=== PATIENT | male | born 1990 | race Caucasian/White ===

== ENCOUNTER 2017-06-24 18:20 | Emergency (ER) | payer SELFPAY ==
[2017-06-24] MEDS ORDERED: LIDOCAINE 1%/EPINEPHRINE INJ 20 ML VIAL INJ ONE (19:14)
[2017-06-24] MEDS ORDERED: DIPH/PERTUSS(ACELL)/TETANUS VAC/PF 0.5 ML SYR (>=10YO) IM ONE (19:14)
--- NOTE | 2017-06-24 19:16 | ER Document Report ---
ED Medical Screen (RME) - General Mode of Arrival: Ambulatory Information source: Patient TRAVEL OUTSIDE OF THE [place] IN LAST 30 DAYS: No - General Chief Complaint: Lip Injury Stated Complaint: LACERATION TO LIP Notes: 26 y.o male presents to the ED with a laceration to his lip. He reports her was drinking from broken glass while walking. Last tetanus unknown. Denies any other medical problems or allergies. (JOSE LUIS BOLTON) - Related Data Allergies/Adverse Reactions: No Known Allergies Allergy (Verified 06/24/17 18:56) Past Medical History - General Information source: Patient - Social History Cigarette use (# per day): No Chew tobacco use (# tins/day): No Frequency of alcohol use: None Drug Abuse: None Renal/ Medical History: Denies: Hx Peritoneal Dialysis Review of Systems - Review of Systems Constitutional: No symptoms reported EENT: No symptoms reported Cardiovascular: No symptoms reported Respiratory: No symptoms reported Gastrointestinal: No symptoms reported Genitourinary: No symptoms reported Male Genitourinary: No symptoms reported Musculoskeletal: No symptoms reported Skin: Other - laceration to lip Hematologic/Lymphatic: No symptoms reported Neurological/Psychological: No symptoms reported -: Yes All other systems reviewed and negative Physical Exam - Vital signs Vitals: Temp Pulse Resp BP Pulse Ox 97.9 F 59 L 16 131/74 H 96 06/24/17 18:36 06/24/17 18:36 06/24/17 18:36 06/24/17 18:36 06/24/17 18:36 - Notes Notes: Physical Exam: General: Alert, appears well. HEENT: Normocephalic. Atraumatic. PERRLA. Extraocular movements intact. Oropharynx clear. Neck: Supple. Respiratory: No respiratory distress. Abdominal: Normal Inspection. No distension. Extremities: Moves all four extremities. Neurological: Normal cognition. AAOx4. Normal speech. Psychological: Normal affect. Normal Mood. Skin: 4mm laceration to the angle of mouth LT side. Gapes when pt opens his mouth. (JOSE LUIS BOLTON) - Vital Signs Vital signs: Temp Pulse Resp BP Pulse Ox 99.1 F 62 16 120/62 99 06/24/17 20:36 06/24/17 20:36 06/24/17 20:36 06/24/17 20:36 06/24/17 20:36 Doctor's Discharge - Discharge Clinical Impression: Lip laceration Condition: Stable Disposition: HOME, SELF-CARE Instructions: Family Physicians / Practices Additional Instructions: Oral Laceration, Sutured The laceration in your mouth has been sutured because of its severity. Suturing does increase the risk of infection somewhat, as germs in the wound are trapped inside. The wound will appear white and rough tomorrow. This ugly appearance is normal for an oral laceration, and will persist until healing is complete. Do not "play" with the stitches with your tongue or teeth. Prevent swelling by resting for 24 hours. Avoid tart or spicy foods for a couple of days. If any signs of infection occur (swelling, redness of the skin directly over the laceration area, increasing tenderness, tender lumps below the jaw or on the sides of the neck, or fever), see the doctor immediately. ANTIBIOTIC OINTMENT PROTECTION: Your wounds are such that dressing them is not practical or optional. After cleansing, you should apply a thin coating of antibiotic ointment ( Bacitracin, not Neosporin) to the wounds at least three times daily. This lessens infection risk, and may decrease the amount of scarring. Use a q-tip or dull butter knife, not your finger, to apply this ointment. Any debris or ooze which builds up in the ointment should be gently rubbed off with a sterile gauze pad. Harder crusting may need to be gently scrubbed off with a clean wash cloth with soap and warm water, perhaps applying a warm, wet wash cloth to the wound for ten minutes first. Development of redness, severe itching, or blistering may mean allergy to the ointment. See the doctor. TETANUS IMMUNIZATION GIVEN: You have been given an immunization against tetanus. Please record this in your records. In general, a booster is needed only once every 10 years. The tetanus shot protects against tetanus or "lockjaw," which is a complication of certain wound infections (the tetanus shot cannot protect against the actual infection). The immunization site may become warm and red due to local reaction. If this occurs, apply warm compresses and take aspirin or ibuprofen to reduce inflammation and discomfort. Return for evaluation if the reaction becomes severe. FOLLOW-UP CARE: Please return in ___3__ days for an infection check and dressing change. Your sutures should be removed in ____5_ days. To facilitate a timely removal of your sutures, you may return to the Emergency Department at [facility]. You do not need to call for an appointment, but the best time to come in for suture removal is early in the morning. If you have been referred to another physician for follow-up care, call that physicians office for an appointment as you were instructed. If you experience a significant change in your laceration, or if you are concerned there may be an infection (swelling, redness, drainage, increasing tenderness, red streaks, tender lumps in the armpit or groin above the laceration, or fever) , return to the Emergency Department immediately re-evaluation. Forms: Elevated Blood Pressure Scribe Documentation - Scribe Written by Edin:: Edin Fuentes [id number]/24/[id number] acting as scribe for :: Rowan
--- NOTE | 2017-06-24 19:40 | ER Document Report ---
ED Oral Problem - General Chief Complaint: Lip Injury Stated Complaint: LACERATION TO LIP Time Seen by Provider: 06/24/17 19:10 Mode of Arrival: Ambulatory Notes: 26-year-old male presents to ED for laceration to the lateral left lower lip when he was walking with a glass and drinking when the glass broke. He is does not know when his last tetanus was. He denies any medical or surgical history. He denies any allergies. TRAVEL OUTSIDE OF THE [place] IN LAST 30 DAYS: No - HPI Patient complains to provider of: Other - Laceration left lower lip Onset: Just prior to arrival Onset: Sudden Quality of pain: Sharp Severity: Mild Pain Level: 1 Associated symptoms: Other - Laceration to the left lower lip Similar symptoms previously: No Recently seen / treated by doctor/dentist: No - Related Data Allergies/Adverse Reactions: No Known Allergies Allergy (Verified 06/24/17 18:56) Past Medical History - General Information source: Patient - Social History Smoking Status: Never Smoker Cigarette use (# per day): No Chew tobacco use (# tins/day): No Smoking Education Provided: No Frequency of alcohol use: None Drug Abuse: None Family History: Reviewed & Not Pertinent Patient has suicidal ideation: No Patient has homicidal ideation: No - Past Medical History Cardiac Medical History: Reports: None Pulmonary Medical History: Reports: None EENT Medical History: Reports: None Neurological Medical History: Reports: None Endocrine Medical History: Reports: None Renal/ Medical History: Reports: None Malignancy Medical History: Reports None GI Medical History: Reports: None Musculoskeltal Medical History: Reports None Skin Medical History: Reports None Psychiatric Medical History: Reports: None Traumatic Medical History: Reports: None Infectious Medical History: Reports: None Surgical Hx: Negative Past Surgical History: Reports: None - Immunizations Hx Diphtheria, Pertussis, Tetanus Vaccination: Yes - 06/24/2017 Review of Systems - Review of Systems Constitutional: No symptoms reported EENT: Other - Laceration to the left lower lip Cardiovascular: No symptoms reported Respiratory: No symptoms reported Gastrointestinal: No symptoms reported Genitourinary: No symptoms reported Male Genitourinary: No symptoms reported Musculoskeletal: No symptoms reported Skin: Other Hematologic/Lymphatic: No symptoms reported Neurological/Psychological: No symptoms reported Physical Exam - Vital signs Vitals: Temp Pulse Resp BP Pulse Ox 97.9 F 59 L 16 131/74 H 96 06/24/17 18:36 06/24/17 18:36 06/24/17 18:36 06/24/17 18:36 06/24/17 18:36 Interpretation: Normal - General General appearance: Appears well, Alert - HEENT Head: Open wounds - Laceration to the left lower lip Eyes: Normal Pupils: PERRL Mouth/Lips: Laceration - Left lower lip - Respiratory Respiratory status: No respiratory distress Chest status: Nontender Breath sounds: Normal Chest palpation: Normal - Cardiovascular Rhythm: Regular Heart sounds: Normal auscultation Murmur: No - Abdominal Inspection: Normal Distension: No distension Bowel sounds: Normal Tenderness: Nontender Organomegaly: No organomegaly - Back Back: Normal, Nontender - Extremities General upper extremity: Normal inspection, Nontender, Normal color, Normal ROM , Normal temperature General lower extremity: Normal inspection, Nontender, Normal color, Normal ROM , Normal temperature, Normal weight bearing. No: Corry's sign - Neurological Neuro grossly intact: Yes Cognition: Normal Orientation: AAOx4 [place] Coma Scale Eye Opening: Spontaneous Luz Maria Coma Scale Verbal: Oriented [place] Coma Scale Motor: Obeys Commands [place] Coma Scale Total: 15 Speech: Normal Motor strength normal: LUE, RUE, LLE, RLE Sensory: Normal - Psychological Associated symptoms: Normal affect, Normal mood - Skin Skin Temperature: Warm Skin Moisture: Dry Skin Color: Normal Skin irregularity: Laceration - Left lower lip Course - Re-evaluation Re-evalutation: 06/24/17 20:22 Patient was treated with a tetanus shot then his left lower lateral lip was cleaned well with surgical scrub ensuring that I did not get any in the mouth. It was then anesthetized with lidocaine with epi and 2 sutures placed in the left lower lateral lip. Patient tolerated well patient instructed to return in 5 days to have the sutures removed. Patient instructed to refrain from eating or drinking anything that was acidic or spicy as these would be painful to the lip until healed. - Vital Signs Vital signs: Temp Pulse Resp BP Pulse Ox 97.9 F 59 L 16 131/74 H 96 06/24/17 18:36 06/24/17 18:36 06/24/17 18:36 06/24/17 18:36 06/24/17 18:36 Procedures - Laceration/Wound Repair Left lower lip Time completed: 20:15 Wound length (cm): 1 Wound's Depth, Shape: Superficial, Linear Laceration pre-procedure: Sterile PPE donned, Sterile drapes applied, Shur- Clens applied Anesthetic type: 1% Lidocaine w/epi Volume Anesthetic (mLs): 2 Wound explored: Contaminated Irrigated w/ Saline (mLs): 50 Wound Repaired With: Sutures Suture Size/Type: 5:0, Ethilon Number of Sutures: 2 Post-procedure wound care: Other Discharge - Discharge Clinical Impression: Lip laceration Qualifiers: Encounter type: initial encounter Qualified Code(s): S01.511A - Laceration without foreign body of lip, initial encounter Condition: Stable Disposition: HOME, SELF-CARE Instructions: Family Physicians / Practices Additional Instructions: Oral Laceration, Sutured The laceration in your mouth has been sutured because of its severity. Suturing does increase the risk of infection somewhat, as germs in the wound are trapped inside. The wound will appear white and rough tomorrow. This ugly appearance is normal for an oral laceration, and will persist until healing is complete. Do not "play" with the stitches with your tongue or teeth. Prevent swelling by resting for 24 hours. Avoid tart or spicy foods for a couple of days. If any signs of infection occur (swelling, redness of the skin directly over the laceration area, increasing tenderness, tender lumps below the jaw or on the sides of the neck, or fever), see the doctor immediately. ANTIBIOTIC OINTMENT PROTECTION: Your wounds are such that dressing them is not practical or optional. After cleansing, you should apply a thin coating of antibiotic ointment ( Bacitracin, not Neosporin) to the wounds at least three times daily. This lessens infection risk, and may decrease the amount of scarring. Use a q-tip or dull butter knife, not your finger, to apply this ointment. Any debris or ooze which builds up in the ointment should be gently rubbed off with a sterile gauze pad. Harder crusting may need to be gently scrubbed off with a clean wash cloth with soap and warm water, perhaps applying a warm, wet wash cloth to the wound for ten minutes first. Development of redness, severe itching, or blistering may mean allergy to the ointment. See the doctor. TETANUS IMMUNIZATION GIVEN: You have been given an immunization against tetanus. Please record this in your records. In general, a booster is needed only once every 10 years. The tetanus shot protects against tetanus or "lockjaw," which is a complication of certain wound infections (the tetanus shot cannot protect against the actual infection). The immunization site may become warm and red due to local reaction. If this occurs, apply warm compresses and take aspirin or ibuprofen to reduce inflammation and discomfort. Return for evaluation if the reaction becomes severe. FOLLOW-UP CARE: Please return in ___3__ days for an infection check and dressing change. Your sutures should be removed in ____5_ days. To facilitate a timely removal of your sutures, you may return to the Emergency Department at [facility]. You do not need to call for an appointment, but the best time to come in for suture removal is early in the morning. If you have been referred to another physician for follow-up care, call that physicians office for an appointment as you were instructed. If you experience a significant change in your laceration, or if you are concerned there may be an infection (swelling, redness, drainage, increasing tenderness, red streaks, tender lumps in the armpit or groin above the laceration, or fever) , return to the Emergency Department immediately re-evaluation. Forms: Elevated Blood Pressure
[2017-06-24 20:37] VITALS: BP 120/62
== END 2017-06-24 20:37 | disposition home or self-care (01) ==
LOC: ER 18:20
PROC: 0CQ1XZZ Repair Lower Lip, External Approach (ICD-10-PCS; principal; 2017-06-24)
DX: S01.511A Laceration without foreign body of lip, initial encounter (principal); W25.XXXA Contact with sharp glass, initial encounter
CPT/HCPCS: 99283; 90471; 90715; 12011; J3490

== ENCOUNTER 2017-06-26 19:21 | Emergency (ER) | payer SELFPAY ==
[2017-06-26 19:59] VITALS: BP 130/63
== END 2017-06-26 20:28 | disposition left against medical advice (07) ==
LOC: ER 19:21
DX: Z53.21 Procedure and treatment not carried out due to patient leaving prior to being seen by health care provider (principal)

== ENCOUNTER 2017-06-29 01:17 | Emergency (ER) | payer SELFPAY ==
--- NOTE | 2017-06-29 01:40 | ER Document Report ---
HPI - HPI Patient complains to provider of: Suture removal Onset: Other - Monday afternoon Pain Level: Denies Context: 26-year-old male here for 2 suture removals left lateral mouth replaced Monday afternoon. He was told to come back today for removal. Associated Symptoms: None Exacerbated by: Denies Relieved by: Denies Similar symptoms previously: No Recently seen / treated by doctor: Yes - ROS ROS below otherwise negative: Yes Systems Reviewed and Negative: Yes All other systems reviewed and negative - CONSTITUTIONAL Constitutional: DENIES: Fever, Chills - EENT EENT: DENIES: Sore Throat, Ear Pain, Eye problems - NEURO Neurology: DENIES: Headache, Weakness, Vision blurred, Dizzinesss / Vertigo - CARDIOVASCULAR Cardiovascular: DENIES: Chest pain - RESPIRATORY Respiratory: DENIES: Trouble Breathing, Coughing - GASTROINTESTINAL Gastrointestinal: DENIES: Abdominal Pain, Black / Bloody Stools - URINARY Urinary: DENIES: Dysuria, Urgency, Frequency - REPRODUCTIVE Reproductive: DENIES: :, Postmenopausal, Abnormal bleeding / discharge - MUSCULOSKELETAL Musculoskeletal: DENIES: Extremity pain Past Medical History - General Information source: Patient - Social History Smoking Status: Former Smoker Chew tobacco use (# tins/day): No Frequency of alcohol use: None Drug Abuse: None Lives with: Family Family History: Reviewed & Not Pertinent Patient has suicidal ideation: No Patient has homicidal ideation: No - Medical History Medical History: Negative Renal/ Medical History: Denies: Hx Peritoneal Dialysis Surgical Hx: Negative - Immunizations Hx Diphtheria, Pertussis, Tetanus Vaccination: Yes - 06/24/2017 Vertical Provider Document - CONSTITUTIONAL Agree With Documented VS: Yes Exam Limitations: No Limitations - INFECTION CONTROL TRAVEL OUTSIDE OF THE [place] IN LAST 30 DAYS: No - NECK Neck: Supple - NEURO Level of Consciousness: Awake - DERM Integumentary: Laceration - Crusted left corner of lips #2 sutures, no infection Adult Front & Back Diagram: 1 - #2 sutures left corner of mouth Course - Vital Signs Vital signs: Temp Pulse Resp BP Pulse Ox 97.9 F 84 16 133/66 H 99 06/29/17 01:23 06/29/17 01:23 06/29/17 01:23 06/29/17 01:23 06/29/17 01:23 Discharge - Discharge Clinical Impression: Suture removal Condition: Good Disposition: HOME, SELF-CARE Instructions: Suture Removal Additional Instructions: Return to the emergency room any concerns
[2017-06-29 02:07] VITALS: BP 129/60
== END 2017-06-29 02:02 | disposition home or self-care (01) ==
LOC: ER 01:17
DX: S01.512D Laceration without foreign body of oral cavity, subsequent encounter (principal); X58.XXXD Exposure to other specified factors, subsequent encounter; Z87.891 Personal history of nicotine dependence

== ENCOUNTER 2017-10-08 22:07 | Emergency (ER) | payer SELFPAY ==
[2017-10-08 22:50] VITALS: BP 128/68
--- NOTE | 2017-10-08 23:01 | RADIOLOGY REPORT (SQ) ---
EXAM DESCRIPTION: XR HAND 3 OR MORE VIEWS COMPLETED DATE/TME: 10/08/2017 22:16 CLINICAL HISTORY: 26 years Male, lac COMPARISON: None. Findings: Swelling, no foreign body. Bones, joints, and soft tissues of the RIGHT XR HAND 3 OR MORE VIEWS appear otherwise intact. IMPRESSION: Swelling.
[2017-10-08] MEDS ORDERED: DIPH/PERTUSS(ACELL)/TETANUS VAC/PF 0.5 ML SYR (>=10YO) IM ONE (23:38)
[2017-10-08] MEDS ORDERED: LIDOCAINE 1% INJ-PF (10 MG/ML) 30 ML SDV INJ ONE (23:38)
--- NOTE | 2017-10-09 00:21 | ER Document Report ---
ED General - General Chief Complaint: Laceration Stated Complaint: LACERATION ON RIGHT HAND Time Seen by Provider: 10/08/17 23:34 Notes: Patient is a 26-year-old male presents with complaints of accidentally cutting his right hand with shoes. Patient is left-hand dominant. The Base of the third Digit on the Right Hand. No Other Injuries. Patient Is Unsure When His Last Tetanus Shot Was. Patient Denies Any Numbness into the Finger. TRAVEL OUTSIDE OF THE [place] IN LAST 30 DAYS: No - Related Data Allergies/Adverse Reactions: No Known Allergies Allergy (Verified 06/24/17 18:56) Past Medical History - Social History Smoking Status: Unknown if Ever Smoked Frequency of alcohol use: None Drug Abuse: None Family History: Reviewed & Not Pertinent Patient has suicidal ideation: No Patient has homicidal ideation: No Renal/ Medical History: Denies: Hx Peritoneal Dialysis - Immunizations Hx Diphtheria, Pertussis, Tetanus Vaccination: Yes - 06/24/2017 Review of Systems - Review of Systems Notes: My Normal Review Basic REVIEW OF SYSTEMS: CONSTITUTIONAL : Denies fever, chills, or sweats. Denies recent illness. MUSCULOSKELETAL: jagged 3cm Laceration to the base of the right third digit. SKIN: Denies rash or skin lesions. NEUROLOGICAL: Denies sensory or motor loss. ALL OTHER SYSTEMS REVIEWED AND NEGATIVE. Physical Exam - Vital signs Vitals: Temp Pulse Resp BP Pulse Ox 98.6 F 86 20 128/68 H 97 10/08/17 22:49 10/08/17 22:49 10/08/17 22:49 10/08/17 22:49 10/08/17 22:49 - Notes Notes: General Appearance: Well nourished, alert, cooperative, no acute distress, no obvious discomfort. Vitals: reviewed, See vital signs table. Head: no swelling or tenderness to the head Eyes: PERRL, EOMI, Conjuctiva clear Extremities: strength 5/5 in all extremities, good pulses in all extremities, patient has a laceration to the base of the right second digit. Small amount of venous oozing. Patient is able flex and extend the finger. Distal sensation is intact. Skin: warm, dry, appropriate color, no rash Neuro: speech clear, oriented x 3, normal affect, responds appropriately to questions. Course - Re-evaluation Re-evalutation: 10/09/17 00:56 Plan evaluation of the cuts. I do not see evidence of tendinous injury. Patient is able flex the finger. The laceration does not seem to go down to the depth of the tendon itself. Distal sensation is intact. Patient was thoroughly irrigated and cleaned and then closed with sutures. Patient to return to ER in 7 days for suture removal. Tetanus was updated. Patient informed to clean daily with soap and water and keep covered when going outside. Patient agrees with plan will be discharged home. Dictation of this chart was performed using voice recognition software; therefore, there may be some unintended grammatical errors. - Vital Signs Vital signs: Temp Pulse Resp BP Pulse Ox 98.6 F 86 20 128/68 H 97 10/08/17 22:49 10/08/17 22:49 10/08/17 22:49 10/08/17 22:49 10/08/17 22:49 Procedures - Laceration/Wound Repair Left Finger Wound length (cm): 3 Wound's Depth, Shape: Irregular Laceration pre-procedure: Sterile drapes applied, Shur-Clens applied Anesthetic type: 1% Lidocaine Volume Anesthetic (mLs): 2 Wound explored: Clean Irrigated w/ Saline (mLs): 40 Wound Repaired With: Sutures Suture Size/Type: 6:0, Ethilon Number of Sutures: 7 Post-procedure NV exam normal: Yes Complications: No
[2017-10-09] MEDS ORDERED: ONDANSETRON 4 MG TAB.RAPDIS ONE (00:46)
[2017-10-09] MEDS ORDERED: HYDROCODONE/ACETAMINOPHEN 5-325 MG (6 TAB/ER DISP) PO PRN (00:58)
== END 2017-10-09 01:30 | disposition home or self-care (01) ==
LOC: ER 22:07
DX: S61.213A Laceration without foreign body of left middle finger without damage to nail, initial encounter (principal); S61.210A Laceration without foreign body of right index finger without damage to nail, initial encounter; W27.8XXA Contact with other nonpowered hand tool, initial encounter; Y93.H9 Activity, other involving exterior property and land maintenance, building and construction; Z23 Encounter for immunization
CPT/HCPCS: 99283; 90471; 73130; 90715; 12002; S0119; J3490

== ENCOUNTER 2017-10-10 00:56 | Emergency (ER) | payer SELFPAY ==
--- NOTE | 2017-10-10 01:46 | ER Document Report ---
ED General - General Chief Complaint: wound check- sutures opened on hand Stated Complaint: FINGER PAIN Time Seen by Provider: 10/10/17 01:44 Notes: Patient presents approximately 24 hours after suture placement to the third digit on his right hand reporting that the sutures have "busted open" patient denies any other symptoms. TRAVEL OUTSIDE OF THE [place] IN LAST 30 DAYS: No - Related Data Allergies/Adverse Reactions: No Known Allergies Allergy (Verified 06/24/17 18:56) Past Medical History - General Information source: Patient - Social History Smoking Status: Never Smoker Family History: Reviewed & Not Pertinent - Medical History Medical History: Negative Renal/ Medical History: Denies: Hx Peritoneal Dialysis Surgical Hx: Negative - Immunizations Hx Diphtheria, Pertussis, Tetanus Vaccination: Yes - 06/24/2017 Review of Systems - Review of Systems Constitutional: No symptoms reported EENT: No symptoms reported Cardiovascular: No symptoms reported Respiratory: No symptoms reported Gastrointestinal: No symptoms reported Genitourinary: No symptoms reported Male Genitourinary: No symptoms reported Musculoskeletal: No symptoms reported Skin: No symptoms reported Hematologic/Lymphatic: No symptoms reported Neurological/Psychological: No symptoms reported Physical Exam - Notes Notes: PHYSICAL EXAMINATION: GENERAL: Well-appearing, well-nourished and in no acute distress. HEAD: Atraumatic, normocephalic. EYES: Pupils equal round extraocular movements intact, conjunctiva are normal. ENT: Nares patent NECK: Normal range of motion LUNGS: No respiratory distress Musculoskeletal: Normal range of motion NEUROLOGICAL: Normal speech, normal gait. PSYCH: Normal mood, normal affect. SKIN: Warm, Dry, normal turgor, no rashes or lesions noted. Well approximated sutured laceration to third digit on right hand, one suture is broken. Course - Re-evaluation Re-evalutation: I removed the one suture that was broken from patient's right third digit. The wound is still well approximated and is being held adequately by the remaining sutures. Encouraged patient to use caution while the sutures are placed as patient does report that he tried doing heavy lifting which is what caused the suture to break. Patient encouraged to continue with previous instructions for laceration care and return as directed for suture removal. Discharge - Discharge Clinical Impression: Visit for wound check Condition: Stable Disposition: HOME, SELF-CARE Additional Instructions: The laceration that was repaired last night appears to be healing well. I do see where one of the sutures broke, it will not cause any problem. Please continue the laceration care as outlined for you last night your discharge papers.
== END 2017-10-10 01:57 | disposition home or self-care (01) ==
LOC: ER 00:56
DX: S61.212D Laceration without foreign body of right middle finger without damage to nail, subsequent encounter (principal); X58.XXXD Exposure to other specified factors, subsequent encounter
CPT/HCPCS: 99282

== ENCOUNTER 2018-02-03 10:50 | Emergency (ER) | payer SELFPAY ==
[2018-02-03 11:00] VITALS: BP 124/63
== END 2018-02-03 13:11 | disposition left against medical advice (07) ==
LOC: ER 10:50
DX: Z53.21 Procedure and treatment not carried out due to patient leaving prior to being seen by health care provider (principal)

== ENCOUNTER 2018-02-05 13:41 | Emergency (ER) | payer SELFPAY ==
[2018-02-05 13:49] VITALS: BP 134/69
[2018-02-05] MEDS ORDERED: HYDROCODONE/ACETAMINOPHEN 5-325 MG (6 TAB/ER DISP) PO PRN (14:29)
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
== END 2018-02-05 14:42 | disposition home or self-care (01) ==
LOC: ER 13:41
DX: T20.09XA Burn of unspecified degree of multiple sites of head, face, and neck, initial encounter (principal); X08.8XXA Exposure to other specified smoke, fire and flames, initial encounter; Y93.G3 Activity, cooking and baking
CPT/HCPCS: 99283